=== PATIENT | female | born 1960 | race Caucasian/White ===

== ENCOUNTER 2023-09-06 18:40 | Emergency (ER) | payer OTHER, SELFPAY ==
--- NOTE | ~2023-09-06 | CT_ITS ---
Non-contrast Head CT History: Head injury Technique: Axial non-contrast imaging of the brain was performed. Dose reduction technique was used on this scan by utilizing automated exposure control and iterative reconstruction technique. The dose -length product (DLP) was 681.00 mGy-cm. Findings: There is no evidence of intracranial hemorrhage, mass lesion, or acute infarct. Brain par enchyma appears normal. The ventricles and subarachnoid spaces are normal in size. The calvarium ap pears normal. The visualized paranasal sinuses and mastoid air cells are clear. There is mild left p eriorbital soft tissue swelling. Impression: No intracranial abnormality seen. Mild left periorbital soft tissue swelling. Reviewed, dictated and finalized at [facility]. [employer] Impression: No intracranial abnormality seen. Mild left periorbital soft tissue swelling.
--- NOTE | ~2023-09-06 | CT_ITS ---
CT Facial Bones and Cervical Spine Clinical Indication: Status post fall Technique: Contiguous axial scans were obtained through the facial bones and cervical spine followed by coronal and sagittal reconstructions. Dose reduction technique was used on this scan by utilizing automated exposure control and iterative reconstruction technique. The dose-length product (DLP) was 146.98 mGy-cm. Findings: CT facial bones: No fractures are identified. The visualized paranasal sinuses are clear. Intraorbita l soft tissues appear normal. There is mild left periorbital soft tissue swelling. CT cervical spine: No fracture identified. There is minimal grade 1 anterolisthesis of C3 over C4. Th ere is 3 mm anterolisthesis of C4 over C5. There is advanced degenerative disc narrowing at C5-C6. Th ere is moderate degenerative disc narrowing at C6-C7. There is scattered facet joint degenerative anisha nges of the cervical spine. Probable mild right neural foraminal narrowing at C5-C6. No prevertebral soft tissue swelling. Impression: No fracture is seen in the facial bones. No fracture of the cervical spine. Mild grade 1 anterolisthesis of C3 over C4, and C4 over C5, as detailed above. Reviewed, dictated and finalized at [facility]. [employer] Impression: No fracture is seen in the facial bones. No fracture of the cervical spine. Mild grade 1 anterolisthesis of C3 over C4, and C4 over C5, as detailed above.
[2023-09-06 18:41] VITALS: BP 130/83; PULSE 85; RESP 16; TEMP 36.8; O2SAT 97
[2023-09-06 20:05] VITALS: BP 127/76; PULSE 67; RESP 15; O2SAT 100
--- NOTE | 2023-09-07 00:30 | ED.FALL ---
HPI - Fall General Chief Complaint: Fall Stated Complaint: fall, lip injury Time Seen by Provider: 09/06/23 22:43 Source: patient Mode of arrival: ambulatory Limitations: no limitations History of Present Illness HPI Narrative: Patient is a 63-year-old female who presents ED with report of a fall on ice that occurred today. Patient reports she was bent over when her feet slipped out underneath her on the ice. She fell forward and hit her face on the ground. She sustained injury to her left eyebrow and left upper lip. Small laceration to her left upper lip. No through and through injury. She denied LOC. Denies any malocclusion or trismus. Denies difficulty breathing or swelling. Denies vision changes, dizziness, lightheadedness. Denies neck or back pain. Tetanus up-to-date. Patient is not on any blood thinners. Related Data Allergies Allergy/AdvReac Type Severity Reaction Status Date / Time Sulfa (Sulfonamide Allergy Mild Verified 01/28/17 16:46 Antibiotics) Review of Systems Review of Systems: CONSTITUTIONAL: Denies fever, chills, or sweats. ENT: See HPI. CARDIOVASCULAR: Denies chest pain. RESPIRATORY: Denies dyspnea. GASTROINTESTINAL: Denies abdominal pain, nausea, vomiting. MUSCULOSKELETAL: Denies back pain, extremity pain, myalgia. NEUROLOGIC: See HPI. All systems reviewed & are unremarkable except as noted in HPI and below Exam Narrative: GENERAL: Well appearing, well-nourished, non-toxic, in no acute distress. HEAD: Normocephalic, atraumatic. EYES: PERRL/EOMI, conjunctiva clear. Swelling and ecchymosis noted to left periorbital region, particularly left upper eyelid. Small abrasion above left upper eye, no deeper laceration or active bleeding. ENT: Irregular H-shaped laceration to skin above left upper lip, does not extend to or involve [place] border. No significant active bleeding. Contusion to inner lip in adjacent location, but no through and through injury. NECK: No midline spinal tenderness. RESPIRATORY: Airway patent, respirations nonlabored. Clear to auscultation bilaterally, no rales, rhonchi, wheezing. CARDIOVASCULAR: Regular rate and rhythm without murmurs, rubs, or gallops. MUSCULOSKELETAL: Moves all extremities. No gross deformities. No midline thoracic or lumbar spinal tenderness. SKIN: Warm, dry, normal color. NEURO: A&O X3. Speech clear. Cranial nerves II-XII grossly intact. Steady gait. No ataxic movements. No focal deficits. PSYCHIATRIC: Appropriate mood and affect. Normal interaction. [facility]: Nose image: 1. laceration Course Vital Signs Vital signs: Vital Signs Temperature 98.3 F 09/06/23 18:41 Pulse Rate 85 09/06/23 18:41 Respiratory Rate 16 09/06/23 18:41 Blood Pressure 130/83 09/06/23 18:41 Pulse Oximetry 97 09/06/23 18:41 Oxygen Delivery Room Air 09/06/23 18:41 Temperature 98.3 F 09/06/23 18:41 Pulse Rate 67 09/06/23 20:05 Respiratory Rate 15 09/06/23 20:05 Blood Pressure 127/76 09/06/23 20:05 Pulse Oximetry 100 09/06/23 20:05 Oxygen Delivery Room Air 09/06/23 20:05 Procedures Laceration Laceration 1: Date: 09/07/23 Time: 00:50 Site: lip Side (If applicable): left Size (cm): 0.5 Description: irregular, clean and other (L upper lip, does not involve [place] border) Depth: simple, single layer Local Anesthetic: lidocaine 1% Amount of anesthesia used (mL): 3 Pre-repair: wound explored and irrigated ====== Skin Level ====== Skin layer closed with: other (fast absorbing gut) Size (cm): 5-0 Number of sutures: 4 Technique: simple, interrupted ====== Subcutaneous Layer ====== ====== Muscle Layer ====== ====== Tendon Layer ====== MDM - Fall MDM Narrative Medical decision making narrative: Patient presented to ED status post fall on ice, injury to head/face. Small laceration above left
== END 2023-09-07 01:26 | disposition home or self-care (01) ==
PROVIDERS: Emergency Provider Physician Assistant; PCP Family Medicine
DX: S00.12XA Contusion of left eyelid and periocular area, initial encounter (principal); S01.511A Laceration without foreign body of lip, initial encounter; W00.0XXA Fall on same level due to ice and snow, initial encounter
CPT/HCPCS: 12011; 70450; 70486; 72125; 99284

== ENCOUNTER 2024-10-12 15:21 | Emergency (ER) | payer OTHER, SELFPAY ==
[2024-10-12 15:29] VITALS: BP 127/78; PULSE 87; RESP 16; TEMP 36.4; O2SAT 100
--- NOTE | 2024-10-12 16:31 | ED.ABDPAIN ---
HPI - Abdominal Pain General Chief Complaint: Urogenital-Female <Christa Garcia PA-C - Last Filed: 10/13/24 10:47> Stated Complaint: left flank pain <Christa Garcia PA-C - Last Filed: 10/13/24 10:47> Time Seen by Provider: 10/12/24 16:31 <Christa Garcia PA-C - Last Filed: 10/13/24 10:47> Focused HPI: This is a 64 year old female that presents to the ER for left flank pain. Pain started this morning. Reports the pain is sharp. Reports nausea. Denies fever, vomiting, dysuria, hematuria. GENERAL: Uncomfortable, well-nourished, in no acute distress. HEAD: Normocephalic, atraumatic. CHEST: Clear to auscultation. ?No respiratory distress. HEART: Regular rate and rhythm.? NEURO: ?Alert and oriented x3. Patient screened in triage and initial orders placed.? ?Additional care and disposition to be based upon?diagnostic testing and treatment. <Christa Garcia PA-C - Last Filed: 10/13/24 10:47> History of Present Illness HPI narrative: I agree with the assessment and documentation of Christa Garcia PA-C. <Lucía Caldwell, VIVIANA - Last Filed: 10/13/24 00:09> Related Data Allergies/Adverse Reactions: Allergies Allergy/AdvReac Type Severity Reaction Status Date / Time Sulfa (Sulfonamide Allergy Mild Unknown Verified 10/12/24 15:33 Antibiotics) <Christa Garcia PA-C - Last Filed: 10/13/24 10:47> Review of Systems Review of Systems: All systems reviewed & are unremarkable except as noted in HPI and below <Lucía Caldwell, VIVIANA - Last Filed: 10/13/24 00:09> Exam Narrative: GENERAL: Well appearing, well-nourished, non-toxic, in no acute distress. HEAD: Normocephalic, atraumatic. NECK: Supple. No adenopathy, no masses. RESPIRATORY: Airway patent, respirations nonlabored. Clear to auscultation bilaterally, no rales, rhonchi, wheezing. CARDIOVASCULAR: Regular rate and rhythm without murmurs, rubs, or gallops. Peripheral pulses 2+ and equal bilaterally. + CVA tenderness ABDOMINAL: Soft, nontender, nondistended, no hepatosplenomegaly. Normoactive BS. MUSCULOSKELETAL: Moves all extremities. Strength/ROM intact without gross deformities. SKIN: Warm, dry, normal color. No rashes. NEURO: A&O X3. Speech clear. Cranial nerves II-XII grossly intact. Steady gait. No ataxic movements. PSYCHIATRIC: Appropriate mood and affect. Normal interaction. <Lucía Caldwell, VIVIANA - Last Filed: 10/13/24 00:09> Course Vital Signs Vital signs: Vital Signs Temperature 97.5 F L 10/12/24 15:29 Pulse Rate 87 10/12/24 15:29 Respiratory Rate 16 10/12/24 15:29 Blood Pressure 127/78 10/12/24 15:29 Pulse Oximetry 100 10/12/24 15:29 Oxygen Delivery Room Air 10/12/24 15:29 Temperature 97.3 F L 10/12/24 16:48 Pulse Rate 110 H 10/12/24 23:52 Respiratory Rate 18 10/12/24 23:52 Blood Pressure 105/72 10/12/24 23:52 Pulse Oximetry 100 10/12/24 23:52 Oxygen Delivery Room Air 10/12/24 15:29 <Christa Garcia PA-C - Last Filed: 10/13/24 10:47> Vital Signs Temperature 97.5 F L 10/12/24 15:29 Pulse Rate 87 10/12/24 15:29 Respiratory Rate 16 10/12/24 15:29 Blood Pressure 127/78 10/12/24 15:29 Pulse Oximetry 100 10/12/24 15:29 Oxygen Delivery Room Air 10/12/24 15:29 Temperature 97.3 F L 10/12/24 16:48 Pulse Rate 110 H 10/12/24 23:52 Respiratory Rate 18 10/12/24 23:52 Blood Pressure 105/72 10/12/24 23:52 Pulse Oximetry 100 10/12/24 23:52 Oxygen Delivery Room Air 10/12/24 15:29 <Lucía Caldwell APRN - Last Filed: 10/13/24 00:09> MDM - Abdominal Pain MDM Narrative Medical decision making narrative: This is a 64 year old female that presents to the ER for left flank pain. Pain started this morning. Reports the pain is sharp. Reports nausea. Denies fever, vomiting, dysuria, hematuria. Labs Ordered: CMP, CBC, UA, lipase Imaging Ordered: CT abdomen pelvis Medications Ordered: Dilaudid 0.5 mg IV, 1 L normal saline IV bolus, Toradol 15 mg IV Results: Pt's CT scan indicates Moderate left hydronephrosis. 2. 3 mm calcification in the expected area of distal left ureter that may be a stone. 3. Uterine fibroids. Diagnosis: Kidney stone, urinary tract infection Consults: urology (outpatient) Patient Education/Shared MDM: Results shared with patient. She endorses improvement following pain medication administration. Patient strongly advised to maintain hydration status upon discharge and follow-up with her PCP and urology. She will be discharged home with prescriptions for Macrobid, Flomax, and Marvell . Strict return precautions provided. Patient verbalized understanding is in agreement with plan. Vital signs stable at time of discharge. All questions answered. <Lucía Caldwell APRN - Last Filed: 10/13/24 00:09> Differential Diagnosis Differential diagnosis: Likely abdominal pain, calculus of kidney, constipation, endometriosis and gastroenteritis <Lucía Caldwell APRN - Last Filed: 10/13/24 00:09> Lab Data Attestation: I reviewed the patient's lab results. <Lucía Caldwell APRN - Last Filed: 10/13/24 00:09> Result diagrams: 10/12/24 17:35 10/12/24 17:35 <Christa Garcia PA-C - Last Filed: 10/13/24 10:47> Labs: Lab Results 10/12/24 Range/Units 17:35 WBC 18.2 H (4.5-10.0) K/mm3 RBC 4.65 (4.2-5.4) M/mm3 Hgb 14.6 (12.0-15.0) g/dL Hct 43.0 (37.0-47.0) % MCV 92.5 (80-100) fl MCH 31.4 (26-34) pg MCHC 34.0 (32-36) g/dl RDW 11.9 (11.5-14.5) % Plt Count 272 (150-375) k/mm3 MPV 8.5 (7.4-10.4) fl Immature Gran % (Auto) Not Reportable Neut % (Auto) Not Reportable Lymph % (Auto) Not Reportable [place] % (Auto) Not Reportable Eos % (Auto) Not Reportable Baso % (Auto) Not Reportable Lymph # (Auto) Not Reportable [place] # (Auto) Not Reportable Eos # (Auto) Not Reportable Baso # (Auto) Not Reportable Abs Immat Gran (auto) Not Reportable Absolute Neuts (auto) Not Reportable Absolute Nucleated RBC Not Reportable Total Counted 100 Neutrophils % (Manual) 89 H (46-73) % Band Neutrophils % 5 (0-6) % Lymphocytes % (Manual) 3 L (18-44) % Monocytes % (Manual) 3 (3-9) % Nucleated RBC % Not Reportable Abs Neuts (Manual) 17.10 H (1.7-7.2) K/mm3 Abs Lymphs (Manual) 0.54 L (1.1-4.5) K/mm3 Abs Monocytes (Manual) 0.54 (0.1-0.90) K/mm3 Platelet Estimate Adequate (Adequate) Schistocytes None seen Sodium 139 (137-145) mmol/L Potassium 3.4 (3.4-5.0) mmol/L Chloride 106 (98-107) mmol/L Carbon Dioxide 23 (22-30) mmol/L Anion Gap 10 (4-12) mmol/L BUN 25 H (7-17) mg/dL Creatinine 0.67 L (0.7-1.0) mg/dL Estim Creat Clear Calc 62 ml/min Estimated GFR > 60 (59 - ) Glucose 130 H (65-110) mg/dL Calcium 9.2 (8.4-10.2) mg/dL Total Bilirubin 1.1 (0.2-1.3) mg/dL AST 28 (14-36) U/L ALT 18 (6-35) U/L Alkaline Phosphatase 102 (38-126) U/L Total Protein 7.0 (6.3-8.2) g/dL Albumin 4.1 (3.5-5.1) g/dL Lipase 51 (23-300) U/L Urine Color Yellow (Yellow) Urine Appearance Clear (Clear) Urine pH 6.0 (5.0-9.0) Ur Specific [place] 1.019 (1.001-1.035) Urine Protein Negative (Negative) mg/dL Urine Glucose (UA) Negative (Negative) mg/dL Urine Ketones 2+ H (Negative) mg/dL Ur Blood (Man) Negative (Negative) Urine Nitrate Negative (Negative) Urine Bilirubin Negative (Negative) Urine Urobilinogen 0.2 (<2.0) mg/dL Leukocyte Esterase Rfl Trace H (Negative) AMY/UL Urine RBC 0-2 (0-2) /hpf Urine WBC 6-10 H (0-3) /hpf Ur Squamous Epith Cells None seen (Few) /hpf Urine Bacteria None seen /hpf Urine Casts 0-2 <Christa Garcia PA-C - Last Filed: 10/13/24 10:47> Lab Results 10/12/24 Range/Units 17:35 WBC 18.2 H (4.5-10.0) K/mm3 RBC 4.65 (4.2-5.4) M/mm3 Hgb 14.6 (12.0-15.0) g/dL Hct 43.0 (37.0-47.0) % MCV 92.5 (80-100) fl MCH 31.4 (26-34) pg MCHC 34.0 (32-36) g/dl RDW 11.9 (11.5-14.5) % Plt Count 272 (150-375) k/mm3 MPV 8.5 (7.4-10.4) fl Immature Gran % (Auto) Not Reportable Neut % (Auto) Not Reportable Lymph % (Auto) Not Reportable [place] % (Auto) Not Reportable Eos % (Auto) Not Reportable Baso % (Auto) Not Reportable Lymph # (Auto) Not Reportable [place] # (Auto) Not Reportable Eos # (Auto) Not Reportable Baso # (Auto) Not Reportable Abs Immat Gran (auto) Not Reportable Absolute Neuts (auto) Not Reportable Absolute Nucleated RBC Not Reportable Total Counted 100 Neutrophils % (Manual) 89 H (46-73) % Band Neutrophils % 5 (0-6) % Lymphocytes % (Manual) 3 L (18-44) % Monocytes % (Manual) 3 (3-9) % Nucleated RBC % Not Reportable Abs Neuts (Manual) 17.10 H (1.7-7.2) K/mm3 Abs Lymphs (Manual) 0.54 L (1.1-4.5) K/mm3 Abs Monocytes (Manual) 0.54 (0.1-0.90) K/mm3 Platelet Estimate Adequate (Adequate) Schistocytes None seen Sodium 139 (137-145) mmol/L Potassium 3.4 (3.4-5.0) mmol/L Chloride 106 (98-107) mmol/L Carbon Dioxide 23 (22-30) mmol/L Anion Gap 10 (4-12) mmol/L BUN 25 H (7-17) mg/dL Creatinine 0.67 L (0.7-1.0) mg/dL Estim Creat Clear Calc 62 ml/min Estimated GFR > 60 (59 - ) Glucose 130 H (65-110) mg/dL Calcium 9.2 (8.4-10.2) mg/dL Total Bilirubin 1.1 (0.2-1.3) mg/dL AST 28 (14-36) U/L ALT 18 (6-35) U/L Alkaline Phosphatase 102 (38-126) U/L Total Protein 7.0 (6.3-8.2) g/dL Albumin 4.1 (3.5-5.1) g/dL Lipase 51 (23-300) U/L Urine Color Yellow (Yellow) Urine Appearance Clear (Clear) Urine pH 6.0 (5.0-9.0) Ur Specific [place] 1.019 (1.001-1.035) Urine Protein Negative (Negative) mg/dL Urine Glucose (UA) Negative (Negative) mg/dL Urine Ketones 2+ H (Negative) mg/dL Ur Blood (Man) Negative (Negative) Urine Nitrate Negative (Negative) Urine Bilirubin Negative (Negative) Urine Urobilinogen 0.2 (<2.0) mg/dL Leukocyte Esterase Rfl Trace H (Negative) AMY/UL Urine RBC 0-2 (0-2) /hpf Urine WBC 6-10 H (0-3) /hpf Ur Squamous Epith Cells None seen (Few) /hpf Urine Bacteria None seen /hpf Urine Casts 0-2 <Lucía Caldwell, VIVIANA - Last Filed: 10/13/24 00:09> Imaging Data Attestation: I personally reviewed and interpreted this imaging study as follows: <Lucía Caldwell, SLIVER CHOPPER - Last Filed: 10/13/24 00:09> Radiologist's impression: ITS Impressions Abdomen/Pelvis CT 10/12/24 16:53 IMPRESSION: 1. Moderate left hydronephrosis. 2. 3 mm calcification in the expected area of distal left ureter that may be a stone. 3. Uterine fibroids. <Christa Garcia PA-C - Last Filed: 10/13/24 10:47> ITS Impressions Abdomen/Pelvis CT 10/12/24 16:53 IMPRESSION: 1. Moderate left hydronephrosis. 2. 3 mm calcification in the expected area of distal left ureter that may be a stone. 3. Uterine fibroids. <Lucía Caldwell, VIVIANA - Last Filed: 10/13/24 00:09> Critical Care Time Critical Care Time Critical Care Time: No <Christa Garcia PA-C - Last Filed: 10/13/24 10:47> Discharge Plan Discharge Clinical Impression: Kidney stone on left side, Left flank pain Urinary tract infection Qualifiers: Urinary tract infection type: acute cystitis Hematuria presence: without hematuria Qualified Code(s): N30.00 - Acute cystitis without hematuria <JESSA Siddiqui Last Filed: 10/13/24 10:47> Patient Disposition: Home, Self-Care <JESSA Siddiqui Last Filed: 10/13/24 10:47> Condition: Stable <JESSA Siddiqui Last Filed: 10/13/24 10:47> Instructions: Antibiotic Form, Kidney Stones (ED), Urinary Tract Infection in Women (ED) <JESSA Siddiqui Last Filed: 10/13/24 10:47> Additional Instructions: Please return to the ER with an worsening symptoms. Follow-up with primary care provider in the next 2-3 days and urology. Take all medications as prescribed. <JESSA Siddiqui Last Filed: 10/13/24 10:47> Patient Language: Tristanian <JESSA Siddiqui Last Filed: 10/13/24 10:47> Prescriptions: New nitrofurantoin monohyd/m-cryst [Macrobid] 100 mg capsule 100 mg PO Q12H 5 Days Qty: 10 0RF Rx Instructions: must administer with a meal/food tamsulosin [Flomax] 0.4 mg capsule 0.4 mg PO DAILY Qty: 7 0RF hydrocodone-acetaminophen 5-325 mg tablet 1 tablet PO Q6H PRN (Reason: pain) Qty: 10 0RF No Action amoxicillin-pot clavulanate 875-125 mg tablet 1 tablet PO Q12H 7 Days Qty: 14 0RF <Christa Garcia PA-C - Last Filed: 10/13/24 10:47> Follow-up/Referrals: Linnea,Malissa Fraga APRN [Primary Care Provider] - <Christa Garcia PA-C - Last Filed: 10/13/24 10:47> Time of Disposition: 00:08 <Christa Garcia PA-C - Last Filed: 10/13/24 10:47> 00:08 <Lucía Caldwell APRN - Last Filed: 10/13/24 00:09>
[2024-10-12 16:48] VITALS: BP 144/84; PULSE 91; RESP 18; TEMP 36.3; O2SAT 100
[2024-10-12] MEDS: KETOROLAC 15 MG/ML VIAL (*BKC) IV PUSH (17:36)
[2024-10-12 17:45] LABS: Hemoglobin 14.6 g/dL (12.0-15.0); Mean Corpuscular Hemoglobin 31.4 pg (26-34); Mean Corpuscular Volume 92.5 fl (80-100); Mean Platelet Volume 8.5 fl (7.4-10.4); Platelet Count Result 272 k/mm3 (150-375); Red Blood Count 4.65 M/mm3 (4.2-5.4); Red Cell Distribution Width 11.9 % (11.5-14.5); White Blood Count 18.2 K/mm3 (4.5-10.0)
[2024-10-12 17:47] LABS: Add Urine Microscopic? YES; Appearance Urine Clear (Clear); Bacteria Urine None Seen /hpf; Bilirubin Urine Negative (Negative); Blood Urine Negative (Negative); Color Urine Yellow (Yellow); Glucose Urine UA Negative (Negative); Ketones Urine 2+ mg/dL (Negative); Leukocyte Esterase Ur Trace LEU/UL (Negative); Nitrate Urine Negative (Negative); Non Pathogenic Casts 0-2; Protein Urine Negative (Negative); RBC Urine 0-2 /hpf (0-2); Specific Grav Ur 1.019 (1.001-1.035); Squamous Epithelial Cell Urine None Seen /hpf (Few); Urobilinogen Urine 0.2 mg/dL (<2.0)
[2024-10-12 17:55] LABS: Alanine Aminotransferase 18 U/L (6-35); Albumin Level 4.1 g/dL (3.5-5.1); Alkaline Phosphatase 102 U/L (38-126); Anion Gap 10 mmol/L (4-12); Aspartate Amino Transferase 28 U/L (14-36); Bilirubin,Total 1.1 mg/dL (0.2-1.3); Blood Urea Nitrogen 25 mg/dL (7-17); Calcium 9.2 mg/dL (8.4-10.2); Carbon Dioxide 23 mmol/L (22-30); Chloride 106 mmol/L (98-107); Estimated CRCL calculation 62 ml/min; Estimated Glomerular Filt Rate > 60; Glucose 130 mg/dL (65-110); Lipase 51 U/L (23-300); Potassium 3.4 mmol/L (3.4-5.0); Sodium 139 mmol/L (137-145)
[2024-10-12 18:14] LABS: Band Neutrophils Percent 5 % (0-6); Lymphocytes Absolute Manual 0.54 K/mm3 (1.1-4.5); Lymphocytes Percent Manual 3 % (18-44); Monocytes Absolute Manual 0.54 K/mm3 (0.1-0.90); Monocytes Percent Manual 3 % (3-9); Neutrophils Percent Manual 89 % (46-73); Platelet Estimate Adequate (Adequate); Total Cells Counted 100
[2024-10-12 18:15] LABS: Schistocytes None Seen
[2024-10-12] MEDS: SODIUM CHLORIDE 0.9% IV 1,000 ML 999 ML IV CONT (21:00)
[2024-10-12] MEDS: HYDROmorphone HCL INJ (*CRX) 1 MG/ML SYR 0.5 MG IV PUSH (21:01)
[2024-10-12 22:24] VITALS: BP 116/82; PULSE 97; RESP 18; O2SAT 94
[2024-10-12 23:52] VITALS: BP 105/72; PULSE 110; RESP 18; O2SAT 100
== END 2024-10-13 00:23 | disposition home or self-care (01) ==
PROVIDERS: Physician Assistant; Emergency Provider Registered Nurse; PCP Nurse Practitioner
DX: N13.2 Hydronephrosis with renal and ureteral calculous obstruction (principal); N30.00 Acute cystitis without hematuria; D25.9 Leiomyoma of uterus, unspecified
CPT/HCPCS: 36415; 74176; 80053; 81001; 83690; 85025; 87086; 87186; 96361; 96374; 96375; 99284; J1171; J1885; J7030

== ENCOUNTER 2025-04-18 10:02 | Outpatient (CLI) | payer OTHER, SELFPAY ==
--- NOTE | ~2025-04-18 | DEXA_ITS ---
Bone Density Report Name: ALANNA WHATLEY Age: 65 Sex: Female Ethnicity: White Date of : 1960 Indication: postmenopausal; screening for osteoporosis; parental hip fracture; height loss; inflammatory bowel disease; Referring Provider: LUIS, ANGEL Fraga Study: Bone densitometry was performed. Exam Date: April 18, 2025 Accession number: [id number] Bone Density: Region BMD T-score Z-score Classification AP Spine(L1-L4) 0.871 -1.6 0.2 Osteopenia Femoral Neck (Left) 0.514 -3.0 -1.5 Osteoporosis Total Hip (Left) 0.571 -3.0 -1.8 Osteoporosis Femoral Neck (Right) 0.598 -2.3 -0.7 Osteopenia Total Hip (Right) 0.649 -2.4 -1.1 Osteopenia Total Hip Mean 0.610 -2.7 -1.5 Osteoporosis World Health Organization criteria for BMD impression classify patients as: Normal (T-score at or above -1.0), Osteopenia (T-score between -1.0 and -2.5), or Osteoporosis (T-score at or below -2.5). 10-year Fracture Risk: FRAX not reported because: Some T-score for Spine Total or Hip Total or Femoral Neck at or below -2.5 Clinical Information Provided by Patient: Parent has had a hip fracture Has the following medical conditions: Inflammatory bowel diseases Patient maximum height was 66 Menopause Age: 49 No regular weight bearing exercise Drinks caffeinated beverages Onset of menses at age 12 Number of children 1 Impression: The patient has osteoporosis, based on the Left Total Hip T-score. The patient has risk factors, including: parental hip fracture. Discussion: INCREASED RISK OF FRACTURE. BONE DENSITY IS UNDESIRABLY LOW AT ONE OR MORE SKELETAL SITES, CONSISTENT WITH POSTMENOPAUSAL OSTEOPOROSIS. This patient's lowest T-score meets the World Health Organization's (WHO) criteria for osteoporosis at one or more sites (T-score -2.5 or below). In untreated patients, the risk of osteoporotic fracture increases approximately two-fold for each 1.0 SD decrease in T-score. Low bone density is not the only risk factor for fracture; also consider factors such as patient's age, frailty or poor health, risk of falling, risk of injury, previous osteoporotic fracture, family history of osteoporosis, cigarette smoking, low body weight, etc. Not everyone with low bone mineral density has osteoporosis; osteomalacia and other metabolic bone disorders should also be considered. Patients who have osteoporosis should be evaluated for specific diseases and conditions (secondary causes) that may cause or contribute to bone loss. The [place] [employer]ocrinologists (AACE) and National Osteoporosis Foundation (NOF) recommend pharmacologic intervention for all postmenopausal women whose T-score is in this range. The patient should follow a healthful lifestyle (good nutrition with adequate calcium and vitamin D, and appropriate weight-bearing exercise). Follow-Up: Consider a repeat BMD and Vertebral Fracture Assessment (VFA) exam in 2 years or sooner if medically necessary, to reassess this patient's status. Reported by: FRANKIE on 04/18/2025 10:40:00 AM. Reviewed, dictated and finalized at location A.
== END 2025-04-18 10:03 | disposition home or self-care (01) ==
LOC: MICIMG 10:04
PROVIDERS: PCP Nurse Practitioner; Visit Provider Nurse Practitioner
DX: Z13.820 Encounter for screening for osteoporosis (principal); M85.88 Other specified disorders of bone density and structure, other site; M81.0 Age-related osteoporosis without current pathological fracture; M85.851 Other specified disorders of bone density and structure, right thigh
CPT/HCPCS: 77080